=== PATIENT | male | born 1965 | race Caucasian/White ===

== ENCOUNTER 2021-08-28 10:54 | Emergency (ER) | payer OTHER, SELFPAY ==
[2021-08-28 11:06] VITALS: BP 147/88; PULSE 72; RESP 16; TEMP 36.5; O2SAT 99
--- NOTE | 2021-08-28 11:17 | ED.EYEPROB ---
HPI - Eye Problem General Chief complaint: Eye Problems Stated complaint: eye redness Time Seen by Provider: 08/28/21 11:05 Source: patient Mode of arrival: ambulatory Limitations: no limitations History of Present Illness HPI Narrative: Patient presents today complaining of swelling and tenderness to his left upper eyelid since yesterday morning that has been worsening since onset. He also reports increased tearing and pain with blinking. Denies vision changes or pus drainage. He has been applying warm compresses with mild relief. His also applied some steroid cream that she had, which did not provide relief. Related Data Home Medications Medication Instructions Recorded Confirmed loratadine 10 mg tablet (Claritin) 10 mg PO DAILY 08/28/21 08/28/21 Allergies Allergy/AdvReac Type Severity Reaction Status Date / Time No Known Allergies Allergy Verified 08/28/21 11:05 Review of Systems Review of Systems: CONSTITUTIONAL: Denies body aches, fever, chills, or sweats. EYES: Denies visual changes. + Swelling, and pain to the left upper eyelid ENT: Denies rhinorrhea, congestion, sore throat, or otalgia. CARDIOVASCULAR: Denies chest pain, palpitations, or edema. RESPIRATORY: Denies cough or dyspnea. GASTROINTESTINAL: Denies abdominal pain, nausea, vomiting, or diarrhea. GENITOURINARY: Denies dysuria or hematuria. SKIN: Denies rash, itching, or wounds. MUSCULOSKELETAL: Denies back pain, joint pain, or myalgia. NEUROLOGIC: Denies headache, numbness, tingling, or weakness. PSYCH: Denies depression or anxiety. PMFSH Comments At time of signature, I have reviewed and agree with nursing past medical, surgical, social and family history unless otherwise noted. Please see nursing chart for further information. There is no relevant family history pertinent to the presenting complaint Exam Narrative: GENERAL: Well-appearing, well-nourished, and in no acute distress. HEAD: Normocephalic, atraumatic. EYES: EOMI. PERRL. Conjunctivae normal. Left upper eyelid is mildy swollen and erythematous. Tender to palpation laterally without defined pustule internally or externally. Lashes normal. No purulent discharge. Right eye normal. ENT: Mucous membranes pink and moist. NECK: Normal AROM. CHEST: No respiratory distress. EXTREMITIES: Normal range of motion. No edema. SKIN: Warm, dry, no rash. Capillary refill normal. Normal skin turgor. NEURO: No focal deficits. Alert and oriented x3. Gait steady. PSYCH: Normal affect. No signs of depression or anxiety. Course Course Level of Care: Express Care Visit Vital Signs Vital signs: Vital Signs Temperature 97.7 F 08/28/21 11:06 Pulse Rate 72 08/28/21 11:06 Respiratory Rate 16 08/28/21 11:06 Blood Pressure 147/88 H 08/28/21 11:06 Pulse Oximetry 99 08/28/21 11:06 Oxygen Delivery Room Air 08/28/21 11:06 Temperature 97.7 F 08/28/21 11:06 Pulse Rate 72 08/28/21 11:06 Respiratory Rate 16 08/28/21 11:06 Blood Pressure 147/88 H 08/28/21 11:06 Pulse Oximetry 99 08/28/21 11:06 Oxygen Delivery Room Air 08/28/21 11:06 Reviewed. Pt has been instructed to follow up with his PCP regarding his elevated blood pressure today. MDM - Eye Problem Differential Diagnosis Differential diagnosis: Likely conjunctivitis, periorbital cellulitis and other (Blepharitis, stye) Critical Care Time Critical Care Time Critical Care Time: No Discharge Plan Discharge Clinical Impression: Hordeolum Qualifiers: Hordeolum type: unspecified type Laterality: left Eyelid: upper Qualified Code(s): H00.014 - Hordeolum externum left upper eyelid Patient Disposition: Home, Self-Care Condition: Stable Instructions: Antibiotic Form Additional Instructions: Your symptoms are likely due to an early stye. Please use the drops and oral antibiotics as prescribed. Take an anti-inflammatory such as Aleve or ibuprofen to help with swelling and pain. Follow-u
== END 2021-08-28 11:26 | disposition home or self-care (01) ==
PROVIDERS: Emergency Provider Nurse Practitioner
DX: H00.014 Hordeolum externum left upper eyelid (principal)
CPT/HCPCS: 99213; G0463

== ENCOUNTER 2021-09-21 10:57 | Emergency (ER) | payer OTHER, SELFPAY ==
--- NOTE | 2021-09-21 11:01 | ED.BACK ---
HPI - Back Pain/Injury General Chief Complaint: Back Pain/Injury Stated Complaint: lower back pain Time Seen by Provider: 09/21/21 11:07 Source: patient, family, RN notes reviewed and old records reviewed Mode of arrival: ambulatory Limitations: no limitations History of Present Illness HPI Narrative: 56-year-old male presents to the [facility] with complaints of low back pain. patient reports that the pain started on Monday after lifting a box of cat litter. Patient denies any saddle anesthesia. No numbness or tingling in extremities. Denies any loss or retention of bowel or bladder. Does have a history of some chronic back pain. States that usually when it acts up he takes some ibuprofen and it goes away. Reports that he has taken ibuprofen and a Flexeril that his gave him. MD elicited complaint: back pain Pertinent past history: prior back pain Related Data Allergies Allergy/AdvReac Type Severity Reaction Status Date / Time No Known Allergies Allergy Verified 08/28/21 11:05 Review of Systems Review of Systems: All systems reviewed & are unremarkable except as noted in HPI and below Constitutional: Constitutional: Reports no additional constitutional complaints and Denies weakness Eyes: Eyes: Reports no additional eye complaints ENT: Reports system reviewed and no additional complaints, except as documented Cardiovascular: Cardiovascular: Reports no additional cardiovascular complaints and Denies chest pain Respiratory: Respiratory: Reports no additional respiratory complaints Gastrointestinal: Gastrointestinal: Reports no additional gastrointestinal complaints and Denies abdominal pain Musculoskeletal: Musculoskeletal: Reports as per HPI, Reports back pain, Denies myalgias and Denies numbness Integumentary/Breasts: Skin/Breast: Reports system reviewed and no additional complaints, except as docu Neurologic: Reports system reviewed and no additional complaints, except as documented, Denies focal weakness, Denies numbness and Denies weakness Psychiatric: Psychiatric: Reports no additional psychiatric complaints Allergic/Immunologic: Allergic/Immunologic: Reports no additional allergic/immunologic complaints [facility] Past Medical History Medical History Anxiety and depression Social History Social History (Updated 09/21/21 @ 11:21 by Maru Schrader APRN) Living arrangements: with family Gender identity (if verbalized by the patient): Male Comments At the time of my signature, I reviewed and agree with the nursing past medical, surgical, social, and family history. There is no relevant family history pertinent to the patient complaint. Exam Const: General: healthy appearing, no acute distress and alert Nutritional Appearance: well nourished Orientation/consciousness: patient oriented x3 Limitations: no limitations HENMT: Head: normal to inspection Ears: external ears normal Eyes: Pupils: Equal, round and reactive pupils present Neck: Neck: normal visual inspection, no lymphadenopathy and no meningeal signs Chest: Chest palpation & inspection: normal inspection of the chest Resp: Effort & Inspection: normal respiratory effort and no use of accessory muscles Auscultation: clear to auscultation bilaterally, no crackles, no rales, no rhonchi and no wheezes Cardio: Rate: regular rate Rhythm: regular rhythm GI: GI Palp: Yes Soft to palpation, No Tenderness to palpation present (GI) and No Guarding due to palpation present (GI) : General: Yes no CVA tenderness Back/Spine/Pelvis: Back: no CVA tenderness, No erythema, No warmth and No ecchymosis Cervical Spine: normal cervical lordosis, cervical ROM normal, No cervical muscular tenderness, No Cervical spine tenderness and No step off deformity Thoracic/Lumbar Spine: thoracic and lumbar spine normal to inspection, pain with thoraco-lumbar ROM, paraspinal muscle tenderness bilaterally in t
[2021-09-21 11:08] VITALS: BP 131/87; PULSE 90; RESP 16; TEMP 37.2; O2SAT 98
== END 2021-09-21 11:20 | disposition home or self-care (01) ==
PROVIDERS: Emergency Provider Nurse Practitioner
DX: S39.012A Strain of muscle, fascia and tendon of lower back, initial encounter (principal); X50.0XXA Overexertion from strenuous movement or load, initial encounter
CPT/HCPCS: 99213; G0463

== ENCOUNTER 2021-10-07 16:08 | Emergency (ER) | payer OTHER, SELFPAY ==
--- NOTE | 2021-10-07 16:12 | ED.URI ---
HPI - URI/Sore Throat General Chief Complaint: Upper Respiratory Infection Stated Complaint: ear pain, congestion, stype on left eye Time Seen by Provider: 10/07/21 16:23 Source: patient and RN notes reviewed Mode of arrival: ambulatory Limitations: no limitations History of Present Illness HPI Narrative: 56-year-old male presents to concern for 3-day history of bilateral ear pain, nasal congestion, rhinorrhea, body aches. He reports symptoms started Monday. He also reports he has a stye on his left upper eyelid that he has had for 1 month. Reports he was treated with antibiotics which made it less swelling, less red, less tender, however the stye remains. Reports his eye doctor saw the stye after the end of his antibiotic course. He reports he has been using warm compresses. He reports he is also been dealing with low back pain, for which she was seen 2 weeks ago. MD elicited complaint: sore throat and other (Ear pain) Related Data Allergies Allergy/AdvReac Type Severity Reaction Status Date / Time No Known Allergies Allergy Verified 10/07/21 16:21 Review of Systems Review of Systems: CONSTITUTIONAL: Reports malaise, fatigue. Denies chills, sweats, or fever. EYES: Denies visual changes, redness, or discharge. Reports stye on the left upper eyelid ENT: Reports rhinorrhea, congestion, otalgia and sore throat. CARDIOVASCULAR: Denies chest pain, palpitations, or edema. RESPIRATORY: Denies cough. Denies dyspnea. GASTROINTESTINAL: Denies abdominal pain, nausea, vomiting, diarrhea SKIN: Denies rash or itching. MUSCULOSKELETAL: Denies myalgia. Reports chronic low back pain NEUROLOGIC: Denies headache. All systems reviewed & are unremarkable except as noted in HPI and below PMFSH Past Medical History Medical History Anxiety and depression Social History Social History (Updated 09/21/21 @ 11:21 by Maru Schrader APRN) Gender identity (if verbalized by the patient): Male Comments At time of signature, agree with nursing past medical, surgical, social and family history. There is no relevant family history pertinent to the presenting complaint Exam Narrative: GENERAL: Nontoxic-appearing and in no acute distress. HEAD: Normocephalic EYES: PERRLA, conjunctivae clear ENT: Nares clear, clear discharge. Mucous membranes moist. TM pearly graf with dull light reflex bilaterally; no tragal tenderness. Oropharynx erythematous without lesions. Tonsils enlarged and without exudate, no drooling, no hoarseness, no trismus, uvula midline. NECK: Supple. No lymphadenopathy CHEST: Clear to auscultation, breath sounds equal. No wheezing, rhonchi, rales, or stridor. No respiratory distress, speaks in full sentences. HEART: Regular rate and rhythm. No murmur heard. SKIN: Warm, dry, no rash. NEURO: Alert and oriented x3. PSYCH: Normal mood and affect Course Course Emergency Course: Patient is aware of diagnosis, understands and agrees to treatment plan. Anticipatory guidance given. Patient agrees to follow-up as directed and is aware of reasons to seek care at the emergency department. Portions of this record may have been created with voice recognition software Level of Care: Express Care Visit Vital Signs Vital signs: Reviewed. MDM - URI/Sore Throat MDM Narrative Medical decision making narrative: Differential diagnosis considered: Frias virus, strep pharyngitis, allergic rhinitis, upper respiratory tract infection, sinusitis, rhinosinusitis, nasopharyngitis. viral pharyngitis, otitis media, otitis externa, pneumonia, bronchitis, viral cough syndrome, viral syndrome, and influenza. Exam findings show no acute concerns or changes; patient is non-toxic appearing and is in no distress. Patient is appropriate for outpatient treatment and follow-up. Lab Data Attestation: I reviewed the patient's lab results. Critical Care Time Critical Care Time Critical Care Time: No Disch
[2021-10-07 16:20] VITALS: BP 136/97; PULSE 90; RESP 20; TEMP 36.8; O2SAT 95
== END 2021-10-07 16:51 | disposition home or self-care (01) ==
PROVIDERS: Emergency Provider Nurse Practitioner
DX: J06.9 Acute upper respiratory infection, unspecified (principal); Z20.822 Contact with and (suspected) exposure to COVID-19
CPT/HCPCS: 87426; 99213; C9803; G0463

== ENCOUNTER 2021-10-31 08:46 | Emergency (ER) | payer OTHER, SELFPAY ==
[2021-10-31 08:56] VITALS: BP 128/89; PULSE 77; RESP 16; TEMP 37.2; O2SAT 98
--- NOTE | 2021-10-31 09:27 | ED.GENADULT ---
HPI - General Adult General Chief complaint: Upper Respiratory Infection Stated complaint: congestion, trouble swallowing Source: patient Mode of arrival: ambulatory Limitations: no limitations History of Present Illness HPI narrative: Patient presents for evaluation of sick symptoms for the last 2 days. Symptoms include productive cough, sinus congestion, sore throat, fatigue, nausea. No fever, chills, vomiting, diarrhea. His son and his both recently tested positive for COVID. His 's symptoms improved with Paxlovid. He has received COVID vaccinations and boosters. He does not smoke. His cough is making it difficult to sleep. No additional complaints or concerns. Related Data Allergies Allergy/AdvReac Type Severity Reaction Status Date / Time No Known Allergies Allergy Verified 10/07/21 16:21 Review of Systems Review of Systems: CONSTITUTIONAL: Reports fatigue. Denies fever, chills, or sweats. EYES: Denies visual changes, redness, or discharge. ENT: Reports sinus congestion, nasal drainage and sore throat. Denies otalgia CARDIOVASCULAR: Denies chest pain, palpitations, or edema. RESPIRATORY: Reports productive cough. Denies wheezing GASTROINTESTINAL: Reports nausea. Denies abdominal pain, vomiting, or diarrhea. GENITOURINARY: Denies dysuria or hematuria. SKIN: Denies rash or itching. MUSCULOSKELETAL: Denies back pain, joint pain, or myalgia. NEUROLOGIC: Denies headache, numbness, dizziness, or weakness. PSYCHIATRIC: Denies anxiety or depression. PMFSH Past Medical History Medical History Anxiety and depression Surgical History Surgical History No pertinent past surgical history Family History Family History Mother Family history non-contributory Social History Social History Smoking status: Never smoker Substance use: never Living arrangements: with family Gender identity (if verbalized by the patient): Male Sexual Orientation (if Verbalized by the Patient): Straight or Heterosexual Spiritual care concerns: No Exam Narrative: GENERAL: Well-appearing, well-nourished, and in no acute distress. HEAD: Normocephalic, atraumatic. EYES: PERRLA and EOMI. ENT: Nares clear, no rhinorrhea or epistaxis. Mucous membranes moist. Oropharynx without tonsillar hypertrophy exudate or other lesions. Bilateral TMs pearly graf nonbulging NECK: Supple. No adenopathy or masses. No carotid bruits or JVD CHEST: Clear to auscultation. No respiratory distress. No wheezes rales or rhonchi HEART: Regular rate and rhythm. No murmur heard. Normal peripheral pulses. ABDOMEN: Soft, nontender, nondistended, normal active bowel sounds. EXTREMITIES: Normal range of motion. No edema. SKIN: Warm, dry, no rash. NEURO: No focal deficits. Alert and oriented x3. PSYCH: Normal mood and affect. Course Course Emergency Course: This is a 56-year-old male that presented for evaluation of sick symptoms. He had 2 family members that recently tested positive for COVID. COVID test here positive. Discussed risk versus benefits of paxlovid. He would like to proceed with therapy. He requested antitussive. Will dc with tessalon. Increase hydration and rest. Follow up outpatient for further evaluation and treatment. Return for worsening symptoms. Go to ER for SOB. Pt in agreement with plan of care. Level of Care: Express Care Visit Vital Signs Vital signs: Vital Signs Temperature 37.2 C 10/31/21 08:56 Pulse Rate 77 10/31/21 08:56 Respiratory Rate 16 10/31/21 08:56 Blood Pressure 128/89 10/31/21 08:56 Pulse Oximetry 98 10/31/21 08:56 Temperature 37.2 C 10/31/21 08:56 Pulse Rate 77 10/31/21 08:56 Respiratory Rate 16 10/31/21 08:56 Blood Pressure 128
== END 2021-10-31 09:32 | disposition home or self-care (01) ==
PROVIDERS: Emergency Provider Nurse Practitioner
DX: U07.1 COVID-19 (principal)
CPT/HCPCS: 87426; 99213; C9803; G0463

== ENCOUNTER 2022-03-01 17:40 | Emergency (ER) | payer OTHER, SELFPAY ==
--- NOTE | 2022-03-01 17:43 | ED.BACK ---
HPI - Back Pain/Injury General Chief Complaint: Back Pain/Injury Stated Complaint: lower back pain Time Seen by Provider: 03/01/22 17:48 Source: patient, family, RN notes reviewed and old records reviewed Mode of arrival: ambulatory Limitations: no limitations History of Present Illness HPI Narrative: 57-year-old male presents to the [facility] with complaints of low back pain since Monday, 3 days. States that he was bending over checking his tire pressure and drove home from [place], got home had trouble getting out of car cause of lower back pain. Denies any trauma. No loss retention of bowel or bladder. Pain does not travel down his legs. Denies abdominal pain. No saddle anesthesia. No midline tenderness. No bruising or swelling. No rashes or erythema. Pain is worse with changing of positions. Denies any chest pain or shortness of breath. Has taken ibuprofen. Has been applying warm and cold compresses MD elicited complaint: back pain Related Data Allergies Allergy/AdvReac Type Severity Reaction Status Date / Time No Known Allergies Allergy Verified 03/01/22 17:41 Review of Systems Review of Systems: All systems reviewed & are unremarkable except as noted in HPI and below Constitutional: Constitutional: Reports no additional constitutional complaints and Denies weakness Eyes: Eyes: Reports no additional eye complaints ENT: Reports system reviewed and no additional complaints, except as documented Cardiovascular: Cardiovascular: Reports no additional cardiovascular complaints and Denies chest pain Respiratory: Respiratory: Reports no additional respiratory complaints Gastrointestinal: Gastrointestinal: Reports no additional gastrointestinal complaints and Denies abdominal pain Genitourinary: Genitourinary: Reports no additional male genitourinary complaints, Denies urinary incontinence and Denies urinary urgency Musculoskeletal: Musculoskeletal: Reports as per HPI, Reports back pain (lower) and Denies numbness Integumentary/Breasts: Skin/Breast: Reports system reviewed and no additional complaints, except as docu Neurologic: Reports system reviewed and no additional complaints, except as documented, Denies focal weakness, Denies numbness and Denies weakness Psychiatric: Psychiatric: Reports no additional psychiatric complaints Allergic/Immunologic: Allergic/Immunologic: Reports no additional allergic/immunologic complaints [facility] Past Medical History Medical History Anxiety and depression Surgical History Surgical History No pertinent past surgical history Family History Family History Mother Family history non-contributory Social History Social History Smoking status: Never smoker Substance use: never Gender identity (if verbalized by the patient): Male Sexual Orientation (if Verbalized by the Patient): Straight or Heterosexual Spiritual care concerns: No Comments At the time of my signature, I reviewed and agree with the nursing past medical, surgical, social, and family history. There is no relevant family history pertinent to the patient complaint. Exam Const: General: healthy appearing, no acute distress, alert and well nourished Nutritional Appearance: well nourished Orientation/consciousness: patient oriented x3 Limitations: no limitations HENMT: Head: normal to inspection Ears: external ears normal Face/Nose/Sinus: normal facial exam Face and sinus: normal facial exam Mouth: Yes Normal oral and palatal mucosa present, Yes lip normal and Yes moist mucous membranes abnormal Eyes: Pupils: Equal, round and reactive pupils present Neck: Neck: normal visual inspection, no lymphadenopathy and no meningeal signs Chest: Chest palpation & inspection: normal i
[2022-03-01 17:47] VITALS: BP 127/81; PULSE 80; RESP 16; TEMP 36.6; O2SAT 99
[2022-03-01 17:51] VITALS: BP 127/81; PULSE 80; RESP 16; TEMP 36.6; O2SAT 99
== END 2022-03-01 17:55 | disposition home or self-care (01) ==
PROVIDERS: Emergency Provider Nurse Practitioner
DX: S39.012A Strain of muscle, fascia and tendon of lower back, initial encounter (principal); X50.1XXA Overexertion from prolonged static or awkward postures, initial encounter
CPT/HCPCS: 99213; G0463

== ENCOUNTER 2022-06-10 08:12 | Emergency (ER) | payer OTHER, SELFPAY ==
--- NOTE | 2022-06-10 08:14 | ED.URI ---
HPI - URI/Sore Throat General Chief Complaint: Upper Respiratory Infection Stated Complaint: SINUS Time Seen by Provider: 06/10/22 08:15 Source: patient, RN notes reviewed and old records reviewed Mode of arrival: ambulatory Limitations: no limitations History of Present Illness HPI Narrative: 57-year-old male presents to the [facility] with sinus congestion, sinus pressure. Has a history of chronic sinus issues. Is being followed by a ear nose throat. Reports symptoms have been going on for 3 weeks, worse over the last 3 days. Per medical record was prescribed Augmentin the 20 of May, patient reports that he did not take it at that time. Reports he takes Zyrtec every morning. Reports doing nasal rinses and a nasal spray daily. Denies any fevers, chest pain. Onset (ago): week(s) (3) Related Data Allergies Allergy/AdvReac Type Severity Reaction Status Date / Time No Known Allergies Allergy Verified 06/10/22 08:18 Review of Systems Review of Systems: All systems reviewed & are unremarkable except as noted in HPI and below Constitutional: Constitutional: Reports no additional constitutional complaints Eyes: Eyes: Reports no additional eye complaints ENT: Reports as per HPI, Reports nasal congestion and Reports nasal discharge Cardiovascular: Cardiovascular: Reports no additional cardiovascular complaints, Denies chest pain and Denies dyspnea Respiratory: Respiratory: Reports no additional respiratory complaints, Denies chest congestion, Denies cough and Denies dyspnea Gastrointestinal: Gastrointestinal: Reports no additional gastrointestinal complaints, Denies abdominal pain, Denies nausea and Denies vomiting Musculoskeletal: Musculoskeletal: Reports no additional musculoskeletal complaints Integumentary/Breasts: Skin/Breast: Reports system reviewed and no additional complaints, except as docu Neurologic: Reports system reviewed and no additional complaints, except as documented Psychiatric: Psychiatric: Reports no additional psychiatric complaints Allergic/Immunologic: Allergic/Immunologic: Reports no additional allergic/immunologic complaints [facility] Past Medical History Medical History Anxiety and depression History of stress test Surgical History Surgical History H/O adenoidectomy (~1969) H/O reconstruction of anterior cruciate ligament tear (~1994) 1993 1ST TIME History of repair of ACL (~1990) Hx of rectal sphincterotomy (~1996) No pertinent past surgical history Family History Family History Mother Family history non-contributory Unknown Heart disease Arthritis Grandparent Cancer Social History Social History Smoking status: Never smoker Alcohol intake: current Drinks per week: 2 Substance use: never Lack of Transportation: No Lack of Food: Never True Current Housing: I Have Housing Concerned About Future Housing: No Difficulty Paying Gas/Electric Bills: No Difficulty Paying for Meds: No Currently Unemployed: No Education: Master's Degree or Higher Difficulty w/ Childcare or Family Care: No Living arrangements: with family Gender identity (if verbalized by the patient): Male Sexual Orientation (if Verbalized by the Patient): Straight or Heterosexual Spiritual care concerns: No Comments At the time of my signature, I reviewed and agree with the nursing past medical, surgical, social, and family history. There is no relevant family history pertinent to the patient complaint. Exam Const: General: cooperative, healthy appearing, comfortable, no acute distress, well developed, alert and well nourished Nutritional Appearance: well nourished Orientation/consciousness: patient oriented x3 Limitations: no limitations HENMT: Head: normal
[2022-06-10 08:20] VITALS: BP 144/95; PULSE 85; RESP 16; TEMP 36.6; O2SAT 99
== END 2022-06-10 08:37 | disposition home or self-care (01) ==
PROVIDERS: Emergency Provider Nurse Practitioner
DX: J01.41 Acute recurrent pansinusitis (principal)
CPT/HCPCS: 99213; G0463

== ENCOUNTER → 2022-10-19 13:39 | Outpatient (CLI) | payer OTHER, SELFPAY ==
--- NOTE | ~2022-10-19 | MR_ITS ---
EXAMINATION: MR knee LT wo con DATE: 10/19/2022 14:16 INDICATION: Unilateral primary osteoarthritis of the left knee TECHNIQUE: Magnetic resonance imaging (MRI) of the left knee was performed without intravenous contra st. Sequences included coronal PD-weighted FSE, coronal PD-weighted FS FSE, sagittal T2-weighted FSE , sagittal PD-weighted FS FSE and axial PD weighted fat saturated FSE. COMPARISON: Left knee radiographs dated 07/01/2022 FINDINGS: Medial compartment: Complex tear of the body and posterior horn of the medial meniscus. The posterior horn of the medial meniscus appears small with suggestion of a displaced flap extending posterior sequelae from the post erior root. Partial-thickness chondral ulceration with scattered chondral surface irregularity along the weightbearing medial femoral condyle involving greater than 50% the cartilage thickness centrally and at the medial tibial plateau also involving greater than 50% the cartilage thickness and with un derlying mild subarticular edema-like signal change along the medial rim. Lateral compartment: Full-thickness radial tear at the posterior root the lateral meniscus with additional complex tear ex tending laterally into the posterior horn and posterior body. Partial-thickness cartilage loss with s mooth chondral surface along the central to posterior lateral tibial plateau. Partial-thickness chond ral ulceration along the weightbearing lateral femoral condyle with small central subchondral osteoph ytes and minimal underlying subarticular edema-like signal change at the anterior most weightbearing lateral femoral condyle. Patellofemoral compartment: Chondral fissuring along the medial side of the medial patellar facet. Remaining articular cartilage is normal. Ligaments and tendons: Postoperative change of prior anterior cruciate ligament reconstruction with interference screws at t he femoral and tibial tunnels. This may represent a revised reconstruction with suggestion of a coupl e additional prior tunnels, now re-ossified with central marrow signal. The ligament reconstruction h as filled with no evident intact graft. There is irregular soft tissue likely representing frayed gra ft tissue along the anterior margin of the intercondylar eminence. Posterior cruciate ligament is nor mal. The medial collateral ligament and fibular collateral ligament complex are normal. Mild distal q uadriceps tendinopathy. Changes along the thickened patellar tendon and at its patellar and intertibi al tuberosity insertions consistent with prior tendon graft harvest/anterior cruciate ligament recons truction. Small heterotopic ossicle within the proximal tendon. The visualized medial and lateral ham string tendons as well as the iliotibial band are normal. Fluid: Small to moderate-sized left knee joint effusion. No loose osteochondral bodies identified. Osseous/other: There is some anterior subluxation of the tibia with respect to the femur consistent with the absence of an intact anterior cruciate ligament. No fracture or pathologic marrow replacing process. IMPRESSION: 1. Failure of a likely revised anterior cruciate ligament reconstruction with prior patellar tendon a utograft harvest. 2. Mild tricompartmental osteoarthritis with moderate and high-grade chondromalacia in the medial and lateral compartments and to lesser degree at the patellofemoral compartment with moderate grade ninfa dral malacia the medial facet. Reviewed, dictated and finalized at location A. IMPRESSION: 1. Failure of a likely revised anterior cruciate ligament reconstruction with p rior patellar tendon autograft harvest. 2. Mild tricompartmental osteoarthritis with moderate and high-grade chondromal acia in the medial and lateral compartments and to lesser degree at the
== END ==
PROVIDERS: Visit Provider Orthopaedic Surgery
DX: M17.12 Unilateral primary osteoarthritis, left knee (principal); M94.262 Chondromalacia, left knee
CPT/HCPCS: 73721

== ENCOUNTER 2022-11-06 17:47 | Emergency (ER) | payer OTHER, SELFPAY ==
--- NOTE | ~2022-11-06 | CT_ITS ---
CT of the Abdomen and Pelvis: Indication: Abdominal pain Technique: 2.5 mm axial scans were obtained through the abdomen and pelvis following intravenous adm inistration of 100 cc of Omnipaque 350. Dose reduction technique was used on this scan by utilizing a utomated exposure control and iterative reconstruction technique. The dose-length product (DLP) was 1 095.15 mGy-cm. Findings: Scans through the lung bases are unremarkable. The liver, spleen, pancreas, gallbladder, adrenals and kidneys are within normal limits. No evidence of aortic aneurysm. No lymphadenopathy. There is wall thickening and pericolonic inflammatory change at the proximal sigmoid colon with under lying diverticular disease. No abscess or free air. No bowel obstruction. Images through the pelvis were performed. Urinary bladder unremarkable. Prostate gland and seminal ve sicles are unremarkable. No ascites. Impression: Acute diverticulitis of the proximal sigmoid colon. No abscess or free air. No bowel obstruction. Reviewed, dictated and finalized at [facility]. Impression: Acute diverticulitis of the proximal sigmoid colon. No abscess or free air. No bowel obstruction.
[2022-11-06 17:49] VITALS: BP 152/83; PULSE 81; RESP 16; TEMP 36.8; O2SAT 99
[2022-11-06 18:03] LABS: Basophils Percent Auto 0.4 % (0.2-1.2); Eosinophils Absolute Auto 0.2 K/mm3 (0-0.3); Eosinophils Percent Auto 1.4 % (0-4.4); Hematocrit 44.8 % (42.0-52.0); Hemoglobin 15.4 g/dL (14.0-18.0); Immature Granulocyte Absolute 0.04 K/mm3 (0.00-0.031); Immature Granulocyte Percent A 0.4 % (0-0.5); Lymphocytes Absolute Auto 1.75 K/mm3 (0.9-3.2); Lymphocytes Percent Auto 16.2 % (18.3-44.2); Mean Corpuscular HGB Conc 34.4 g/dl (32-36); Mean Corpuscular Volume 90.1 fl (80-100); Mean Platelet Volume 10.4 fl (7.4-10.4); Monocytes Absolute Auto 0.9 K/mm3 (0.1-0.6); Monocytes Percent Auto 8.2 % (2.6-8.5); Neutrophils Absolute Auto 7.9 K/mm3 (1.3-6.7); Neutrophils Percent Auto 73.4 % (45.5-73.1); Platelet Count Result 220 k/mm3 (150-375); Red Blood Count 4.97 M/mm3 (4.6-6.20); Red Cell Distribution Width 12.8 % (11.5-14.5); White Blood Count 10.8 K/mm3 (4.5-10.0)
[2022-11-06 18:15] LABS: Alanine Aminotransferase 34 U/L (6-50); Albumin Level 4.7 g/dL (3.5-5.1); Alkaline Phosphatase 51 U/L (38-126); Anion Gap 9 mmol/L (8-16); Aspartate Amino Transferase 28 U/L (17-59); Bilirubin,Total 1.1 mg/dL (0.2-1.3); Blood Urea Nitrogen 23 mg/dL (9-20); Calcium 9.1 mg/dL (8.4-10.2); Carbon Dioxide 27 mmol/L (22-30); Chloride 102 mmol/L (98-107); Estimated CRCL calculation 78 ml/min; Estimated Glomerular Filt Rate > 60; Glucose 93 mg/dL (65-110); Lactic Acid Reflex 1.1 mmol/L (0.7-2.0); Lipase 127 U/L (23-300); Potassium 4.3 mmol/L (3.4-5.0); Sodium 138 mmol/L (137-145)
[2022-11-06 18:31] LABS: Appearance Urine Clear (Clear); Bilirubin Urine Negative (Negative); Blood Urine Negative (Negative); Color Urine Yellow (Yellow); Glucose Urine UA Negative (Negative); Ketones Urine Negative (Negative); Leukocyte Esterase Ur Negative LEU/UL (Negative); Nitrate Urine Negative (Negative); Protein Urine Negative (Negative); Specific Grav Ur 1.023 (1.001-1.035); pH Urine 6.5 (5.0-9.0)
[2022-11-06 18:34] LABS: Add Urine Microscopic? NO
[2022-11-06] MEDS: ONDANSETRON INJ 4 MG/2 ML VIAL IV PUSH (22:56)
[2022-11-06] MEDS: HYDROmorphone HCL INJ (*CRX) 1 MG/ML SYR 0.5 MG IV PUSH (22:57)
[2022-11-06] MEDS: PIPERACILLN/TAZ 3.375GM/NS50ML 3.375 GM/50 ML BAG IVPB (23:06)
--- NOTE | 2022-11-06 23:10 | ED.GENADULT ---
[facility] - General Adult General Chief complaint: Abdominal Pain Stated complaint: abd pain Time Seen by Provider: 11/06/22 22:43 Source: patient Mode of arrival: ambulatory Limitations: no limitations History of Present Illness HPI narrative: This is a 57-year-old male with PMH of diverticulitis who presents to the ED with chief complaint of left lower quadrant pain onset yesterday and worsening today. Reports that the pain has been gradually worsening ever since onset. Reports it is in the left lower quadrant and radiates to the suprapubic abdomen on occasion. Endorses nausea but denies vomiting. Denies any problems with bowel movements, urination. Denies fevers, chills, chest pain, shortness of breath, cough. Additionally reports recent diagnosis of hemochromatosis. Related Data Home Medications Medication Instructions Recorded Confirmed ibuprofen 600 mg tablet 600 mg PO Q6H PRN 07/01/22 10/06/22 Allergies Allergy/AdvReac Type Severity Reaction Status Date / Time No Known Allergies Allergy Verified 10/06/22 13:25 Review of Systems Review of Systems: All systems as dictated in [facility] Past Medical History Medical History Anxiety and depression History of stress test Surgical History Surgical History H/O adenoidectomy (~1969) H/O reconstruction of anterior cruciate ligament tear (~1994) 1993 1ST TIME History of repair of ACL (~1990) Hx of rectal sphincterotomy (~1996) No pertinent past surgical history Family History Family History Mother Family history non-contributory Unknown Heart disease Arthritis Grandparent Cancer Social History Social History Smoking status: Never smoker Alcohol intake: current Drinks per week: 2 Substance use: never Lack of Transportation: No Lack of Food: Never True Current Housing: I Have Housing Concerned About Future Housing: No Difficulty Paying Gas/Electric Bills: No Difficulty Paying for Meds: No Currently Unemployed: No Education: Master's Degree or Higher Difficulty w/ Childcare or Family Care: No Living arrangements: with family Gender identity (if verbalized by the patient): Male Sexual Orientation (if Verbalized by the Patient): Straight or Heterosexual Spiritual care concerns: No Exam Narrative: GENERAL: Well-appearing, well-nourished, and in no acute distress. HEAD: Normocephalic, atraumatic. EYES: PERRLA and EOMI. ENT: Nares clear, no rhinorrhea or epistaxis. Mucous membranes moist. Oropharynx without tonsillar hypertrophy exudate or other lesions. NECK: Supple. No adenopathy or masses. CHEST: No respiratory distress. Clear to auscultation. No wheezes rales or rhonchi HEART: Regular rate and rhythm. No murmur heard. Normal peripheral pulses. ABDOMEN: Focal left lower quadrant and suprapubic tenderness present. Soft, otherwise nontender, nondistended, normal active bowel sounds. Negative peritoneal signs. MSK: Normal range of motion. No edema. SKIN: Warm, dry, no rash. NEURO: Alert and oriented x3. No focal deficits. PSYCH: Normal mood and affect. Course Vital Signs Vital signs: Vital Signs Temperature 98.3 F 11/06/22 17:49 Pulse Rate 81 11/06/22 17:49 Respiratory Rate 16 11/06/22 17:49 Blood Pressure 152/83 H 11/06/22 17:49 Pulse Oximetry 99 11/06/22 17:49 Temperature 98.3 F 11/06/22 17:49 Pulse Rate 72 11/07/22 00:13 Respiratory Rate 17 11/07/22 00:13 Blood Pressure 142/88 H 11/07/22 00:13 Pulse Oximetry 96 11/07/22 00:13 Medical Decision Making [facility] Narrative Medical decision making narrative: This is a 57-year-old male who presents to the ED with chief complaint of left lower quadrant abdominal pain beginning about 24 navid
[2022-11-07 00:13] VITALS: BP 142/88; PULSE 72; RESP 17; O2SAT 96
== END 2022-11-07 00:16 | disposition home or self-care (01) ==
PROVIDERS: Emergency Medicine; Emergency Provider Physician Assistant
DX: K57.92 Diverticulitis of intestine, part unspecified, without perforation or abscess without bleeding (principal); F41.9 Anxiety disorder, unspecified; F32.A Depression, unspecified
CPT/HCPCS: 36415; 74177; 80053; 81003; 83605; 83690; 85025; 96365; 96375; 99284; J1170; J2405; J2543; Q9967

== ENCOUNTER 2022-11-24 16:39 | Emergency (ER) | payer OTHER, SELFPAY ==
[2022-11-24 16:55] VITALS: BP 135/86; PULSE 81; RESP 16; TEMP 36.7; O2SAT 99
--- NOTE | 2022-11-24 17:02 | ED.SKABFB ---
HPI - Skin/Abscess/Foreign Bdy General Chief complaint: Skin/Abscess/Foreign Body Stated complaint: CYST ON NECK Time Seen by Provider: 11/24/22 17:02 Source: patient Mode of arrival: ambulatory Limitations: no limitations History of Present Illness HPI narrative: 57-year-old male presented for complaint of abscess to the left neck/base of skull area worsening over the past 2 weeks. Patient states he had an uncomplicated cyst removed by pcp about 4 weeks ago. States the cyst started increasing in size about one month later. States [place] 2 [place] and the site increased in size and pain, and on the return trip the cyst broke open and has been draining over the past few days. States the drainage is yellow, white, clear and bloody. Scheduled with a superintendent storage area in December. Also reports chronic sinusitis but over the past few days he has had increased facial pressure and congestion. Also reports fatigue and body aches which he has attributed to the travel. Denies sob, wheezing, n/v/d/f/c. Related Data Home Medications Medication Instructions Recorded Confirmed azelastine 137 mcg (0.1 %) nasal 1 spray intranasal DAILY 11/24/22 11/24/22 spray aerosol dicyclomine 10 mg capsule 10 mg PO QID 11/24/22 11/24/22 Allergies Allergy/AdvReac Type Severity Reaction Status Date / Time No Known Allergies Allergy Verified 11/24/22 16:44 Review of Systems Review of Systems: CONSTITUTIONAL: Denies body aches, fever, chills, or sweats. EYES: Denies visual changes, redness, or discharge. ENT: reports rhinorrhea, congestion CARDIOVASCULAR: Denies chest pain, palpitations, or edema. RESPIRATORY: Denies cough or dyspnea. GASTROINTESTINAL: Denies abdominal pain, nausea, vomiting, or diarrhea. SKIN: reports cyst draining pus on neck MUSCULOSKELETAL: Denies back pain, joint pain, or myalgia. NEUROLOGIC: Denies headache, numbness, tingling, or weakness. [facility] Past Medical History Medical History Anxiety and depression History of stress test IBS (irritable bowel syndrome) Surgical History Surgical History H/O adenoidectomy (~1970) H/O reconstruction of anterior cruciate ligament tear (~1994) 1993 1ST TIME History of repair of ACL (~1990) Hx of rectal sphincterotomy (~1996) No pertinent past surgical history Family History Family History Mother Family history non-contributory Unknown Heart disease Arthritis Grandparent Cancer Social History Social History Smoking status: Never smoker Alcohol intake: current Drinks per week: 2 Substance use: never Lack of Transportation: No Lack of Food: Never True Current Housing: I Have Housing Concerned About Future Housing: No Difficulty Paying Gas/Electric Bills: No Difficulty Paying for Meds: No Currently Unemployed: No Education: Master's Degree or Higher Difficulty w/ Childcare or Family Care: No Living arrangements: with family Gender identity (if verbalized by the patient): Male Sexual Orientation (if Verbalized by the Patient): Straight or Heterosexual Spiritual care concerns: No Comments At time of signature, I have reviewed and agree with nursing past medical, surgical, social and family history unless otherwise noted. Please see nursing chart for further information. There is no relevant family history pertinent to the presenting complaint Exam Narrative: GENERAL: Well-appearing HEAD: Normocephalic, atraumatic. EYES: conjunctivae clear, and EOMI. ENT: Mucous membranes moist. nasal congestion. Oropharynx without edema, erythema or lesions. NECK: Supple. No lymphadenopathy CHEST: Clear to auscultation. HEART: Regular rate and rhythm. SKIN: Warm, dry. Left posterior neck with 3cm diame
== END 2022-11-24 18:14 | disposition home or self-care (01) ==
PROVIDERS: Emergency Provider Nurse Practitioner Family
DX: L02.11 Cutaneous abscess of neck (principal); J06.9 Acute upper respiratory infection, unspecified; Z79.899 Other long term (current) drug therapy; Z20.822 Contact with and (suspected) exposure to COVID-19
CPT/HCPCS: 10060; 87070; 87075; 87077; 87186; 87205; 87426; 99213; C9803; G0463

== ENCOUNTER 2023-01-03 00:25 | Day surgery (SDC) | payer OTHER, SELFPAY ==
[2022-12-30 14:03] VITALS: BMI 28.3
--- NOTE | 2022-12-30 14:11 | PC.NURSE ---
Report to the Outpatient Waiting Room, entrance under the green pavilion located off [facility], at time 1130 on date 01/03/23. Planned Procedure Time: 1330. Time changes happen often and if your time is changed the preop area will call you the afternoon before. - You and your visitor will be asked to self-screen and do not enter if you have any COVID symptoms. - A mask is optional within the hospital at this time. Patients may have clear liquids (water, carbonated beverages, clear teas, apple juice) until 3 hours prior to surgery with a maximum of 20 ounces. - No food from midnight until time of surgery Take the following medications with a SIP of water the morning of surgery: NONE DO NOT STOP ANY OF YOUR OTHER PRESCRIPTION MEDICATIONS PRIOR TO SURGERY ?EXCEPT THE FOLLOWING Medications to discontinue per physician: N/A Date to take last dose: N/A Please no make-up, nail kiswahili, hairspray, perfume, deodorant, or body powder the day of surgery. No jewelry (including any body piercings) or valuables the day of surgery, leave them at home. Please take a shower or bath the night before, or the morning of, surgery with an antibacterial soap. Wear comfortable, loose fitting clothing. - Jewelry must be removed prior to entering the operating room. Rings and piercings that are not removed may be cut off. - The hospital will not accept responsibility for valuables. - Please leave all valuables, including medications, at home the day of surgery. If you are going home after surgery, a licensed rear load truck driver must drive you home. - NO public transportation without another adult if you receive anesthesia. - We recommend that an adult stay with you for 24 hours following discharge. - We also recommend that you do not drive, make important decision, drink alcoholic beverages, or take any drugs that were not prescribed by your health care provider for at least 24 hours after your discharge time. Follow any additional instructions given to you from your surgeon. If you or anyone in your household have experienced Covid symptoms in the past week, please notify your surgeon or the nurse liaison at the phone number below for possible testing. Telephone instructions given to PT - TORI ESPARZA and asked if any additional questions and then verbalized understanding. Patient advised to call surgeon office or pre surgery nurse liaison [phone] if any additional questions.
[2023-01-03] VITALS (9 sets, daily range): BP systolic 127–149; BP diastolic 77–96; PULSE 59–82; RESP 12–14; TEMP 36.2–36.9; O2SAT 97–100
[2023-01-03] MEDS: KETOROLAC 15 MG/ML VIAL (*BKC) IV PUSH (09:30)
[2023-01-03] MEDS: ACETAMINOPHEN 500 MG TABLET 1000 MG PO (09:30)
[2023-01-03] MEDS: LACTATED RINGERS 1,000 ML 30 ML IV CONT ×2 (09:30→12:18)
--- NOTE | 2023-01-03 09:42 | WPDANESEPPF ---
Anes - Initial Pre Proc Eval Procedure: Operation Date: 01/03/23 13:30 Proposed Procedures p Left Knee Arthroscopic Partial Medial and Lateral Meniscectomy - Blake Johnson MD Date/Time: 01/03/23 09:42 Surgeon: Blake Johnson MD Pre Op Diagnosis: left knee medial and lateral meniscus tears Patient Data Age: 57 Gender: M Height: 1.91 m Weight: 103 kg Allergies Allergy/AdvReac Type Severity Reaction Status Date / Time No Known Allergies Allergy Verified 12/30/22 14:01 Home Medications Medication Instructions Recorded Confirmed Type azelastine 137 mcg (0.1 %) nasal 1 spray intranasal DAILY 11/24/22 12/30/22 History spray aerosol dicyclomine 10 mg capsule 10 mg PO QID 11/24/22 12/30/22 History methocarbamol 500 mg tablet 500 mg PO DAILY PRN Pain 12/30/22 12/30/22 History hydrocodone 5 mg-acetaminophen 325 1 - 2 tablet PO Q4-6H PRN pain #30 01/03/23 Rx mg tablet tabs Patient hx anesthesia problems: none Family hx anesthesia problems: none Results Review: All pre-operative results and documents have been reviewed as part of the pre-operative evaluation. [facility] Past Medical History Medical History Anxiety and depression History of stress test IBS (irritable bowel syndrome) Surgical History Surgical History H/O adenoidectomy (~1969) H/O reconstruction of anterior cruciate ligament tear (~1994) 1993 1ST TIME History of repair of ACL (~1990) Hx of rectal sphincterotomy (~1996) No pertinent past surgical history Family History Family History Mother Family history non-contributory Unknown Heart disease Arthritis Grandparent Cancer Social History Social History Smoking status: Former smoker Tobacco type: cigarettes Additional smoking assessment comments: [employer]MER [employer] Alcohol intake: current Drinks per week: 2 Alcohol use details: 1-2/MONTH Substance use: never Substance use type: does not use Lack of Transportation: No Lack of Food: Never True Current Housing: I Have Housing Concerned About Future Housing: No Difficulty Paying Gas/Electric Bills: No Difficulty Paying for Meds: No Currently Unemployed: No Education: Master's Degree or Higher Difficulty w/ Childcare or Family Care: No Living arrangements: with family Gender identity (if verbalized by the patient): Male Sexual Orientation (if Verbalized by the Patient): Straight or Heterosexual Spiritual care concerns: No Anes - Eval Final PreProcedure Day of Procedure 01/03/23 09:42 Patient weight: overweight Heart: regular rate and rhythm Lungs: clear to auscultation Airway: Mallampati scale class II Neurological: alert and oriented Last oral intake: >/= 8 hours ASA classification: II Emergent: no Anesthetic plan: proceed Anesthesia type and monitoring: general LMA and standard monitoring Results Review: All pre-operative results and documents have been reviewed as part of the pre-operative evaluation. Informed Consent: The patient's anesthetic plan and its attendant risks and benefits were discussed with the patient/family/POA. Questions were solicited and answers provided to the satisfaction of the patient/family/POA.
--- NOTE | 2023-01-03 09:57 | WPDHPUPDATE1 ---
History and Physical Update Update Date/Time: 01/03/23 09:57 History and Physical has been reviewed, including an updated exam of the patient. There are NO changes in the patient's condition. Risks, benefits, and alternatives have been discussed and questions answered. Patient agrees to proceed with procedure.
[2023-01-03] MEDS: ceFAZolin 2 GM/D5W 50 ML 2 GM/50 ML BAG IVPB (10:22)
[2023-01-03] MEDS: BUPIVACAINE/EPINEPHRINE 0.5% 10 ML VIAL 30 ML INFILTRATE (10:50)
--- NOTE | 2023-01-03 11:49 | P.OP_ITS ---
Procedure Note - Detailed Date of Procedure 01/03/23 Pre-op Diagnosis Left knee medial and lateral meniscus tears, chronic ACL tear Post-op Diagnosis Other (1. Medial and lateral meniscus tears. 2. Chronic ACL tear 3. Medial synovial plica 4. Mild degenerative arthritis) Procedure Performed 1. Arthroscopic partial medial and lateral meniscectomies 2. Arthroscopic ACL debridement and Plica excision Surgeon Blake Johnson MD Aircraft Delivery Checker Rosalie Murray PA-C Anesthesia General Findings Complex, extensive medial meniscus tear with unstable flap. Undersurface longitudinal posterior horn lateral meniscus tear. Medial plica with evidence for irritation of the medial femoral cartilage. Peripatellar synovial hypertrophy/ scarring. Medial femur chondromalacia grade 3, medial tibia grade 3 with small area of exposed bone. Lateral femur chondromalacia grade 1, lateral tibia grade 1. Patellar grade 2, trochlea grade 1. Description of Procedure The patient was identified and the surgical site confirmed and signed in the preoperative holding area. Antibiotics were started per protocol. She was brought to the operative room and transferred to the OR table. A general anesthetic was administered. Supine position with the operative lower extremity position in the leg mittal after placement of a well padded tourniquet. The leg support was lowered and the contralateral limb was supported with a soft bolster. The knee was prepped and draped in the usual sterile fashion. A time- out was performed. The portal sites were marked and infiltrated with 0.5% Marcaine 20 mL. The limb was exsanguinated and the tourniquet inflated to 300 mL Hg. Standard inferolateral and inferomedial portals were established. Inflow was obtained with the saline pump. The camera was introduced. Diagnostic inspection of the joint was accomplished. The menisci were debrided with the arthroscopic shaver and punches until stable. The medial plica was excised in the peripatellar tissue that was hypertrophic was excised the lateral gutter and in the fat pad area. There was an ACL remnant of scar tissue in a ball in the notch. This was gently removed with a grasper. The radiofrequency probe was also used for further d?bridement and to assure a stable rim of meniscus and debrided tissue. The arthroscopic instruments were removed. The tourniquet released and wounds closed with subcutaneous 4-0 Monocryl absorbable suture. Steri strips and a sterile dressing were applied. A light elastic wrap was placed. The patient was extubated and brought to the recovery room in stable condition. Estimated Blood Loss 5 Drains No Complications No immediate complications Condition Stable Disposition PACU [facility] Billing Surgery - Charge Forward: Surgery Billing
[2023-01-03] MEDS: fentaNYL CITRATE INJ (*CRX) 100 MCG/2 ML VIAL 25 MCG IV PUSH ×4 (12:00→12:30)
--- NOTE | 2023-01-03 13:40 | SUR.PHASEII ---
PATIENT REPORTS STILL FEELING GROGGY.
== END 2023-01-03 14:15 | disposition home or self-care (01) ==
PROVIDERS: Visit Provider Orthopaedic Surgery
PROC: (CPT 29870; principal; 2023-01-03 13:30)
DX: M23.352 Other meniscus derangements, posterior horn of lateral meniscus, left knee (principal); M23.332 Other meniscus derangements, other medial meniscus, left knee; S83.512S Sprain of anterior cruciate ligament of left knee, sequela; M17.32 Unilateral post-traumatic osteoarthritis, left knee; M65.862 Other synovitis and tenosynovitis, left lower leg; M94.262 Chondromalacia, left knee; T14.90XS Injury, unspecified, sequela; F41.8 Other specified anxiety disorders; K58.9 Irritable bowel syndrome, unspecified
CPT/HCPCS: 29880; A9270; J0690; J1100; J1885; J2250; J2405; J2704; J3010; J7120

== ENCOUNTER 2023-11-27 18:23 | Emergency (ER) | payer OTHER, SELFPAY ==
[2023-11-27] VITALS (9 sets, daily range): BP systolic 124–145; BP diastolic 69–89; PULSE 29–86; RESP 14–18; TEMP 36.7; O2SAT 94–100
--- NOTE | ~2023-11-27 | CT_ITS ---
EXAMINATION: CT abdomen pelvis w con DATE: 11/27/2023 20:40 INDICATION: LUQ/ LLQ Pain TECHNIQUE: Computed tomography (CT) of the abdomen and pelvis was performed with 100 mL Omnipaque-350 intravenous contrast. Automated exposure control and iterative reconstruction technique were employe d. The dose-length product was 919.02 mGy-cm. COMPARISON: 11/06/2022. FINDINGS: Lower thorax: Unremarkable Liver: Subcentimeter left lobe hypodensity, likely cyst or hemangioma Biliary/Gallbladder: Gallbladder is normal. No bile duct dilation. Pancreas: No mass or duct dilation. Spleen: Normal. Adrenals:Tiny subcentimeter right adrenal hypodensity, likely adenoma. Kidneys: No suspicious mass, obstructing stone, or hydronephrosis. GI tract: No small or large bowel dilation. Normal appendix. Pericolonic inflammatory stranding at th e proximal sigmoid with underlying diverticulosis. No free air or abscess. Mesentery/Peritoneum: No ascites, mass, or free air. Retroperitoneum: No mass. Pelvis: The urinary bladder is mostly empty. Prostatomegaly with calcification.. Soft Tissues: Small fat-containing uncomplicated appearing umbilical hernia. Bones: No acute osseous finding. IMPRESSION: Uncomplicated proximal sigmoid diverticulitis. Location and severity are similar to the prior study. Reviewed, dictated and finalized at location K. IMPRESSION: Uncomplicated proximal sigmoid diverticulitis. Location and severity are simila r to the prior study.
--- NOTE | 2023-11-27 18:30 | ECG_ITS ---
Test Date: 2023-11-27 18:35:00 Measurements Intervals [place] Rate: 89 P: 6 LA: 144 QRS: -1 QRSD: 90 T: 18 QT: 345 QTc: 420 Interpretive Statements SINUS RHYTHM VENTRICULAR TRIGEMINY ABNORMAL ECG No previous ECG available for comparison Electronically Signed On 11-27-2023 20:08:13 CDT by Arcadio Regalado D.O.
--- NOTE | 2023-11-27 18:36 | ED.ABDPAIN ---
HPI - Abdominal Pain General Chief Complaint: Abdominal Pain <Mackenzie Armstrong PA-C - Last Filed: 11/28/23 10:05> Stated Complaint: diverticulitis flare up <Mackenzie Armstrong PA-C - Last Filed: 11/28/23 10:05> Time Seen by Provider: 11/27/23 18:36 <Mackenzie Armstrong PA-C - Last Filed: 11/28/23 10:05> Focused HPI: This is a 58 year old male that presents to the ER for abdominal pain. Ongoing over the last 2 days. Reports history of diverticulitis and was concerned he was having a flare. Also reports he has been having dizzy spells lately. GENERAL: Uncomfortable appearing, well-nourished, and in no acute distress. HEAD: Normocephalic, atraumatic. CHEST: Clear to auscultation. ?No respiratory distress. HEART: Regular rate and rhythm.? NEURO: ?Alert and oriented x3. Patient screened in triage and initial orders placed.? ?Additional care and disposition to be based upon?diagnostic testing and treatment. <Mackenzie Armstrong PA-C - Last Filed: 11/28/23 10:05> Focused HPI: This is a 58 year old male that presents to the ER for abdominal pain. Ongoing over the last 2 days. Reports history of diverticulitis and was concerned he was having a flare. Also reports he has been having dizzy spells lately. GENERAL: Uncomfortable appearing, well-nourished, and in no acute distress. HEAD: Normocephalic, atraumatic. CHEST: Clear to auscultation. ?No respiratory distress. HEART: Regular rate and rhythm.? NEURO: ?Alert and oriented x3. Patient screened in triage and initial orders placed.? ?Additional care and disposition to be based upon?diagnostic testing and treatment. Agree with triage assessment. Patient states that approximately 1 year ago he had a flare-up of his diverticulitis which felt very similar to this. He states that his pain is about a 6 or 7/10 but sometimes he will have episodes where it will shoot up to a 9 or a 10. Patient also states that he has been having some dizziness for the past 2 months and his primary care physician is aware of it and referred him to a neurologist which she sees in approximately 1 week. When asked to elaborate on the dizziness, patient denies any lightheadedness or near syncopal episode and states that the dizziness is positional with head movement. He is currently denying any chest pain or shortness of breath, any nausea, vomiting or diarrhea. Patient also denies any fevers or chills at home. No additional symptoms or concerns at this time. <Zeeshan Davis MD - Last Filed: 11/27/23 21:25> Related Data Home Medications: Home Medications Medication Instructions Recorded Confirmed azelastine 137 mcg (0.1 %) nasal 1 spray intranasal DAILY 11/24/22 05/18/23 spray dicyclomine 10 mg capsule 10 mg PO QID 11/24/22 05/18/23 methocarbamol 500 mg tablet 500 mg PO DAILY PRN Pain 12/30/22 05/18/23 atorvastatin 10 mg tablet 10 mg PO DAILY 01/16/23 05/18/23 <Mackenzie Armstrong PA-C - Last Filed: 11/28/23 10:05> Allergies/Adverse Reactions: Allergies Allergy/AdvReac Type Severity Reaction Status Date / Time No Known Allergies Allergy Verified 05/17/23 15:46 <Mackenzie Armstrong PA-C - Last Filed: 11/28/23 10:05> Review of Systems Review of Systems: All systems are reviewed and are negative unless stated otherwise in the HPI. <Zeeshan Davis MD - Last Filed: 11/27/23 21:25> PMFSH Past Medical History Medical History: Medical History Anxiety and depression History of stress test IBS (irritable bowel syndrome) <Mackenzie Armstrong PA-C - Last Filed: 11/28/23 10:05> Surgical History Surgical History: Surgical History H/O adenoidectomy (~1969) H/O reconstruction of anterior cruciate ligament tear (~1994) 1994 1ST TIME History of meniscectomy of left knee (~01/03/23) Partial Medial & Lateral History of repair of ACL (~1990) Hx of re
[2023-11-27 19:32] LABS: Basophils Percent Auto 0.4 % (0.2-1.2); Eosinophils Absolute Auto 0.2 K/mm3 (0-0.3); Eosinophils Percent Auto 1.4 % (0-4.4); Immature Granulocyte Absolute 0.02 K/mm3 (0.00-0.031); Immature Granulocyte Percent A 0.2 % (0-0.5); Lymphocytes Absolute Auto 2.01 K/mm3 (0.9-3.2); Lymphocytes Percent Auto 18.5 % (18.3-44.2); Mean Corpuscular HGB Conc 34.9 g/dl (32-36); Mean Corpuscular Hemoglobin 31.1 pg (26-34); Mean Platelet Volume 10.5 fl (7.4-10.4); Monocytes Absolute Auto 0.9 K/mm3 (0.1-0.6); Neutrophils Absolute Auto 7.8 K/mm3 (1.3-6.7); Neutrophils Percent Auto 71.5 % (45.5-73.1); Platelet Count Result 207 k/mm3 (150-375); Red Blood Count 4.83 M/mm3 (4.6-6.20); White Blood Count 10.8 K/mm3 (4.5-10.0)
[2023-11-27] MEDS: MORPHINE SULFATE (*CRX) 4 MG/ML INJ IV PUSH (19:40)
[2023-11-27] MEDS: ONDANSETRON INJ 4 MG/2 ML VIAL IV PUSH ×2 (19:41→21:23)
[2023-11-27] MEDS: SODIUM CHLORIDE 0.9% IV 1,000 ML 999 ML IV CONT (19:43)
[2023-11-27 19:44] LABS: Alanine Aminotransferase 31 U/L (6-50); Albumin Level 4.8 g/dL (3.5-5.1); Alkaline Phosphatase 59 U/L (38-126); Anion Gap 9 mmol/L (4-12); Aspartate Amino Transferase 26 U/L (17-59); Bilirubin,Total 1.8 mg/dL (0.2-1.3); Blood Urea Nitrogen 15 mg/dL (9-20); Carbon Dioxide 24 mmol/L (22-30); Chloride 103 mmol/L (98-107); Estimated CRCL calculation 93 ml/min; Estimated Glomerular Filt Rate > 60; Glucose 90 mg/dL (65-110); Lipase 119 U/L (23-300); Sodium 136 mmol/L (137-145)
[2023-11-27 20:37] LABS: Add Urine Microscopic? NO; Appearance Urine Clear (Clear); Bilirubin Urine Negative (Negative); Blood Urine Negative (Negative); Color Urine Yellow (Yellow); Glucose Urine UA Negative (Negative); Ketones Urine Negative (Negative); Leukocyte Esterase Ur Negative LEU/UL (Negative); Nitrate Urine Negative (Negative); Protein Urine Negative (Negative); Specific Grav Ur 1.018 (1.001-1.035); Urobilinogen Urine 0.2 mg/dL (<2.0); pH Urine 6.5 (5.0-9.0)
[2023-11-27] MEDS: MORPHINE SULFATE (*CRX) 4 MG/ML INJ 2 MG IV PUSH (21:23)
--- NOTE | 2023-11-27 22:20 | PC.NURSE ---
Augmentin not in pyxisKaylee in pharmacy notified at 2129, she stated someone would bring a dose down for pt
[2023-11-27] MEDS: AMOXICILLIN/CLAVULANATE K 875-125 MG TAB 1 TABLET PO (22:32)
== END 2023-11-27 23:01 | disposition home or self-care (01) ==
PROVIDERS: Physician Assistant; Emergency Provider Emergency Medicine
DX: K57.32 Diverticulitis of large intestine without perforation or abscess without bleeding (principal); I49.3 Ventricular premature depolarization; K58.9 Irritable bowel syndrome, unspecified; Z87.891 Personal history of nicotine dependence
CPT/HCPCS: 36415; 74177; 80053; 81003; 83690; 83735; 85025; 93005; 96361; 96374; 96375; 96376; 99284; A9270; J2270; J2405; J7030; Q9967

== ENCOUNTER 2023-12-07 15:54 | Outpatient (CLI) | payer OTHER, SELFPAY ==
--- NOTE | ~2023-12-07 | XR_ITS ---
XR knee LT min 4V Ordering provider: Blake Johnson MD History: . M17.12 - Unilateral primary osteoarthritis, left knee . Comparison: May 25, 2023 FINDINGS: BONES: No acute fracture or dislocation. Postoperative changes for ACL reconstruction. Small bony fra gment seen in the soft tissues anteriorly which may be ossification in the patellar tendon versus loo se body versus postoperative change. Bony irregularity seen in the tibial plateau anteriorly JOINT SPACES: Narrowing of the medial compartment. Slight narrowing of the lateral compartment. Rhea nal osteophytes in the patella. SOFT TISSUES: Normal. IMPRESSION: No acute osseous abnormality left knee. Postoperative changes. Osteoarthritic changes with no significant change from previous examination Reviewed, dictated and finalized at location A.
== END 2023-12-07 15:55 | disposition home or self-care (01) ==
LOC: ANHIMG 16:04
PROVIDERS: Visit Provider Orthopaedic Surgery
DX: M17.12 Unilateral primary osteoarthritis, left knee (principal)
CPT/HCPCS: 73564

== ENCOUNTER 2024-01-10 15:16 | Outpatient (CLI) | payer OTHER, SELFPAY ==
--- NOTE | ~2024-01-10 | XR_ITS ---
Left Shoulder Technique: AP and scapular Y views were obtained. Clinical History: Pain Findings: No fracture or dislocation is seen. Osseous alignment is anatomic. The glenohumeral and acr omioclavicular joint spaces are preserved. Suspected small foci of calcific tendinitis of the rotator cuff. Impression: Suspected small areas of calcific tendinitis of the rotator cuff. Reviewed, dictated and finalized at location . S AMBASSADOR Impression: Suspected small areas of calcific tendinitis of the rotator cuff.
== END 2024-01-10 15:17 | disposition home or self-care (01) ==
LOC: ANHIMG 15:21
PROVIDERS: Visit Provider Orthopaedic Surgery
DX: M25.512 Pain in left shoulder (principal)
CPT/HCPCS: 73030